=== PATIENT | male | born 1960 | race Hispanic/Latino ===

== ENCOUNTER 2017-08-02 15:59 | Outpatient (CLI) | payer OTHER ==
--- NOTE | 2017-08-02 16:41 | XRay Report ---
Lumbar spine: Back pain. AP and lateral standing views demonstrates anterior and lateral articular spurs at L3-4 with anterior partial bridging spur at L2-3. Very minimal anterior wedging is noted at the L3 level. The vertebral height, alignment, and interspaces are otherwise unremarkable. The bones are well-mineralized. The apophyseal joints appear generally preserved. Impression: Degenerative bony changes from L2-L4.
== END 2017-08-02 16:00 | disposition home or self-care (01) ==
LOC: SPVIMAG 15:59
DX: M47.896 Other spondylosis, lumbar region (principal); M53.86 Other specified dorsopathies, lumbar region
CPT/HCPCS: 72100

== ENCOUNTER 2017-08-31 11:19 | Outpatient (CLI) | payer OTHER ==
--- NOTE | 2017-08-31 12:07 | XRay Report ---
Bilateral shoulder: History: Shoulder pain. Findings: Mild arthritic changes at the a.c. joint with moderate arthritic changes of the glenohumeral joint. Normal acromiohumeral space. No fracture or soft tissue calcification. Impression: Arthritic changes a.c. joint and glenohumeral joint as detailed above.
--- NOTE | 2017-08-31 12:09 | XRay Report ---
Cervical spine series: History: Cervical age. Findings: Normal height of vertebral bodies. Minimal decrease in height of C5-C6 and C6-C7. Sclerotic articular surfaces with peripheral osteophytes suggestive of cervical spondylosis. Normal prevertebral soft tissue. No fracture. Impression: Oh Mild spondylosis lower cervical spine.
== END 2017-08-31 11:20 | disposition home or self-care (01) ==
LOC: SPVIMAG 11:19
DX: M19.012 Primary osteoarthritis, left shoulder (principal); M19.011 Primary osteoarthritis, right shoulder; M47.892 Other spondylosis, cervical region; M25.78 Osteophyte, vertebrae
CPT/HCPCS: 72040

== ENCOUNTER 2017-09-20 12:05 | Outpatient (CLI) | payer OTHER ==
--- NOTE | 2017-09-24 10:38 | XRay Report ---
XRAY LEFT KNEE 3 VIEWS: 09/20/17 12:05:00 CLINICAL: Left knee pain. FINDINGS: No fracture or dislocation. The medial and lateral joint spaces are normal. The patella is positioned relatively high. Small patellofemoral osteophytes. A prominent fragmented tibial tubercle. Normal soft tissues. IMPRESSION: 1. 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 2. 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
== END 2017-09-20 12:06 | disposition home or self-care (01) ==
LOC: SPVIMAG 12:05
DX: M25.762 Osteophyte, left knee (principal); I10 Essential (primary) hypertension; E78.00 Pure hypercholesterolemia, unspecified; F32.9 Major depressive disorder, single episode, unspecified; E07.9 Disorder of thyroid, unspecified